=== PATIENT | male | born 1970 | race Caucasian/White ===

== ENCOUNTER 2018-12-30 12:42 | Emergency (ER) | payer BC ==
[2018-12-30] MEDS: KETOROLAC 30 MG INJ IM (13:27)
[2018-12-30] MEDS: HYDROCODONE/APAP (5/325) TAB PO (13:59)
== END 2018-12-30 15:00 | disposition home or self-care (01) ==
LOC: FTE 12:42
DX: S52.125A Nondisplaced fracture of head of left radius, initial encounter for closed fracture (principal); F17.210 Nicotine dependence, cigarettes, uncomplicated; W01.0XXA Fall on same level from slipping, tripping and stumbling without subsequent striking against object, initial encounter; Y92.9 Unspecified place or not applicable
CPT/HCPCS: 29105; 73080-LT; 96372; 99284-25